=== PATIENT | male | born 1980 | race African-American/Black ===

== ENCOUNTER 2018-06-06 15:42 | Emergency (ER) | payer OTHER ==
--- NOTE | 2018-06-06 16:36 | ER ---
Nurse's Notes [facility] Name: Faustino Tran Age: 37 yrs Sex: Male : 1980 Arrival Date: 06/06/2018 Time: 15:47 Bed 10 Private MD: out of town, doctor Diagnosis: Essential (primary) hypertension;Dental root caries;Cough Presentation: 06/06 15:51 Presenting complaint: Patient states: left upper and lower tooth pain since last week. sv Subjective fever, cough, congestion. Transition of care: patient was not received from another setting of care. Onset of symptoms was May 2018. Care prior to arrival: None. 15:51 Method Of Arrival: Ambulatory sv 15:51 Acuity: VERÓNICA 4 sv 16:14 Risk Assessment: Do you want to hurt yourself or someone else? Patient reports no rv desire to harm self or others. Initial Sepsis Screen: Does the patient meet any 2 criteria? No. Patient's initial sepsis screen is negative. Does the patient have a suspected source of infection? No. Patient's initial sepsis screen is negative. Triage Assessment: 16:18 General: Appears in no apparent distress. uncomfortable, Behavior is calm, cooperative. rv EENT: Reports pain in lower left first molar (#19) and upper left first molar (#14). Historical: - Allergies: 15:52 NSAIDS; sv - PMHx: 15:52 Hypertension; sv - PSHx: 15:52 None; sv - Immunization history:: Flu vaccine is not up to date. - Social history:: Smoking status: Patient uses tobacco products, denies chronic smoking, but will smoke occasionally. - Ebola Screening: : No symptoms or risks identified at this time. Screenin:14 Abuse screen: Denies threats or abuse. Denies injuries from another. Nutritional rv screening: No deficits noted. Tuberculosis screening: No symptoms or risk factors identified. Fall Risk None identified. Assessment: 16:13 General: Appears in no apparent distress. uncomfortable, Behavior is calm, cooperative. rv Pain: Complains of pain in tooth. Neuro: Level of Consciousness is awake, alert, obeys commands, Oriented to person, place, time, situation. Cardiovascular: Capillary refill < 3 seconds. Respiratory: Airway is patent. GI: No signs and/or symptoms were reported involving the gastrointestinal system. : No signs and/or symptoms were reported regarding the genitourinary system. Derm: Skin is intact. Musculoskeletal: No signs and/or symptoms reported regarding the musculoskeletal system. 16:17 EENT: Dental caries noted in upper left first molar (#14) and lower left first molar rv (#19). Vital Signs: 15:52 BP 150 / 106; Pulse 69; Resp 18; Temp 97.2; Pulse Ox 99% ; Weight 113.4 kg; Height 6 sv ft. 4 in. (193.04 cm); Pain 10/10; 16:30 BP 145 / 96; Pulse 71; Resp 16; Pulse Ox 100% on R/A; rv 17:02 BP 158 / 103; Pulse 66; Resp 17 S; Pulse Ox 100% on R/A; rv 15:52 Body Mass Index 30.43 (113.40 kg, 193.04 cm) sv ED Course: 15:47 Patient arrived in ED. mr 15:47 out of town, doctor is Private Physician. mr 15:52 Triage completed. sv 15:53 Arm band placed on. sv 16:01 Patsy Murrell FNP-C [facility]. snw 16:01 Navi Martinez MD is Attending Physician. snw 16:14 Patient has correct armband on for positive identification. Call light in reach. NIBP rv on. 17:02 No provider procedures requiring assistance completed. Patient did not have IV access rv during this emergency room visit. Administered Medications: 16:40 Drug: morphine 4 mg Route: IM; Site: right deltoid; rv 17:01 Follow up: Response: Pain is decreased rv 16:40 Drug: Zofran 4 mg Route: PO; rv 17:01 Follow up: Response: No adverse reaction rv 16:40 Drug: Clindamycin 300 mg Route: PO; rv 17:01 Follow up: Response: No adverse reaction rv Outcome: 16:35 Discharge ordered by . snw 17:03 Discharged to home ambulatory. rv 17:03 Condition: good 17:03 Discharge instructions given to patient, family, Instructed on discharge instructions, follow up and referral plans. medication usage, Demonstrated understanding of instructions, follow-up care, medications, Prescriptions given X 3. 17:03 Patient left the ED. rv Signatures: Kait Reynolds RN RN Patsy Murrell FNP-C FNP-Csnw Huffman Yulia mr Gokul, Eliu, RN RN rv
--- NOTE | 2018-06-06 16:36 | EDPHYS ---
Physician Documentation [facility] Name: Faustino Tran Age: 37 yrs Sex: Male : 1980 Arrival Date: 06/06/2018 Time: 15:47 Bed 10 Private MD: out of town, doctor ED Physician Navi Martinez HPI: 06/06 17:01 This 37 yrs old Black Male presents to ER via Ambulatory with complaints of Toothache. snw 17:01 The patient presents with broken tooth/teeth, pain. The problem is located in the upper snw left first molar (#14) and lower left first molar (#19). Onset: The symptoms/episode began/occurred suddenly, 4 day(s) ago, and became worse last night, and became persistent. Duration: The symptoms are continuous, and are steadily getting worse. Associated signs and symptoms: The patient has no apparent associated signs or symptoms. Severity of symptoms: At their worst the symptoms were moderate, severe. It is unknown whether or not the patient has had similar symptoms in the past. It is unknown whether or not the patient has recently seen a physician. Historical: - Allergies: 15:52 NSAIDS; sv - PMHx: 15:52 Hypertension; sv - PSHx: 15:52 None; sv - Immunization history:: Flu vaccine is not up to date. - Social history:: Smoking status: Patient uses tobacco products, denies chronic smoking, but will smoke occasionally. - Ebola Screening: : No symptoms or risks identified at this time. ROS: 16:59 Constitutional: Negative for fever, chills, and weight loss, Eyes: Negative for injury, snw pain, redness, and discharge, Neck: Negative for injury, pain, and swelling, Cardiovascular: Negative for chest pain, palpitations, and edema, Respiratory: Negative for shortness of breath, wheezing, and pleuritic chest pain, cough Abdomen/GI: Negative for abdominal pain, nausea, vomiting, diarrhea, and constipation, Back: Negative for injury and pain, : Negative for injury, bleeding, discharge, and swelling, MS/Extremity: Negative for injury and deformity, Skin: Negative for injury, rash, and discoloration, Neuro: Negative for headache, weakness, numbness, tingling, and seizure. 16:59 ENT: Positive for dental pain, ear pain, sore throat. Exam: 16:56 Constitutional: This is a well developed, well nourished patient who is awake, alert, snw and in no acute distress. Head/Face: Normocephalic, atraumatic. Eyes: Pupils equal round and reactive to light, extra-ocular motions intact. Lids and lashes normal. Conjunctiva and sclera are non-icteric and not injected. Cornea within normal limits. Periorbital areas with no swelling, redness, or edema. Neck: Trachea midline, no thyromegaly or masses palpated, and no cervical lymphadenopathy. Supple, full range of motion without nuchal rigidity, or vertebral point tenderness. No Meningismus. Chest/axilla: Normal chest wall appearance and motion. Nontender with no deformity. No lesions are appreciated. Cardiovascular: Regular rate and rhythm with a normal S1 and S2. No gallops, murmurs, or rubs. Normal PMI, no JVD. No pulse deficits. Respiratory: Lungs have equal breath sounds bilaterally, clear to auscultation and percussion. No rales, rhonchi or wheezes noted. No increased work of breathing, no retractions or nasal flaring. + dry cough Abdomen/GI: Soft, non-tender, with normal bowel sounds. No distension or tympany. No guarding or rebound. No evidence of tenderness throughout. 16:56 Skin: Warm, dry with normal turgor. Normal color with no rashes, no lesions, and no evidence of cellulitis. MS/ Extremity: Pulses equal, no cyanosis. Neurovascular intact. Full, normal range of motion. Neuro: Awake and alert, GCS 15, oriented to person, place, time, and situation. Cranial nerves II-XII grossly intact. Motor strength 5/5 in all extremities. Sensory grossly intact. Cerebellar exam normal. Normal gait. 16:56 ENT: External ear(s): are unremarkable, Ear canal(s): are normal, TM's: are normal, Nose: is normal, Mouth: is normal, Posterior pharynx: is normal, Dental exam: fractured teeth are noted, specifically the upper left first molar (#14) and lower left first molar (#19), Voice: is normal. Vital Signs: 15:52 BP 150 / 106; Pulse 69; Resp 18; Temp 97.2; Pulse Ox 99% ; Weight 113.4 kg; Height 6 sv ft. 4 in. (193.04 cm); Pain 10/10; 16:30 BP 145 / 96; Pulse 71; Resp 16; Pulse Ox 100% on R/A; rv 17:02 BP 158 / 103; Pulse 66; Resp 17 S; Pulse Ox 100% on R/A; rv 15:52 Body Mass Index 30.43 (113.40 kg, 193.04 cm) sv MDM: 16:24 Patient medically screened. snw 16:32 Data reviewed: vital signs, nurses notes. Data interpreted: Pulse oximetry: on room air snw is 99 %. Interpretation: normal. Counseling: I had a detailed discussion with the patient and/or guardian regarding: the historical points, exam findings, and any diagnostic results supporting the discharge/admit diagnosis, the presence of at least one elevated blood pressure reading (>120/80) during this emergency department visit, the need for outpatient follow up, for definitive care, to return to the emergency department if symptoms worsen or persist or if there are any questions or concerns that arise at home. Special discussion: I have referred the patient to see his PCP for further evaluation of high blood pressure. Based on the history and exam findings, there is no indication for further emergent testing or inpatient evaluation. I discussed with the patient/guardian the need to see a dentist for further evaluation of the symptoms. I discussed with the patient/guardian the need to see the primary care provider for further evaluation of the symptoms. Administered Medications: 16:40 Drug: morphine 4 mg Route: IM; Site: right deltoid; rv 17:01 Follow up: Response: Pain is decreased rv 16:40 Drug: Zofran 4 mg Route: PO; rv 17:01 Follow up: Response: No adverse reaction rv 16:40 Drug: Clindamycin 300 mg Route: PO; rv 17:01 Follow up: Response: No adverse reaction rv Disposition: 06/06/18 16:35 Discharged to Home. Impression: Essential (primary) hypertension, Dental root caries, Cough. - Condition is Stable. - Discharge Instructions: Dental Caries, Adult, Dental Pain, Hypertension, Cough, Adult, [id number], Managing Your Hypertension. - Prescriptions for chlorhexidine gluconate 0.12 % Mucous Membrane mouthwash - place 15 milliliter by MUCOUS MEMBRANE route 2 times per day after brushing teeth, swish in mouth for 30 seconds then spit out; 480 milliliter. Clindamycin HCl 300 mg Oral Capsule - take 1 capsule by ORAL route every 6 hours for 10 days; 40 capsule. Ultram 50 mg Oral Tablet - take 1 tablet by ORAL route every 6 hours As needed; 16 tablet. - Medication Reconciliation Form, Thank You Letter, Antibiotic Education, Prescription Opioid Use form. - Follow up: Private Physician; When: 2 - 3 days; Reason: Recheck today's complaints, Continuance of care, Re-evaluation by your physician. Follow up: Emergency Department; When: As needed; Reason: Worsening of condition. - Notes: dental wax to broken tooth after chlorhexadine mouthwash two to three times daily Addendum: 06/08/2018 19:08 Co-signature as Attending Physician, Navi Martinez MD. g s Signatures: Kait Reynolds RN RN sv Patsy Murrell, PRIMARY COUNSELOR-C PRIMARY COUNSELOR-Csnw Navi Martinez MD MD gs Vicente, Ronaldo RN RN rv Corrections: (The following items were deleted from the chart) 06/06 17:03 16:35 06/06/2018 16:35 Discharged to Home. Impression: Essential (primary) rv hypertension; Dental root caries; Cough. Condition is Stable. Forms are Medication Reconciliation Form, Thank You Letter, Antibiotic Education, Prescription Opioid Use. Follow up: Private Physician; When: 2 - 3 days; Reason: Recheck today's complaints, Continuance of care, Re-evaluation by your physician. Follow up: Emergency Department; When: As needed; Reason: Worsening of condition. snw
[2018-06-06] MEDS ORDERED: CLINDAMYCIN HCL 150 MG CAP ONE (16:46)
[2018-06-06] MEDS ORDERED: ONDANSETRON 4 MG (ODT) TAB ONE (16:46)
[2018-06-06] MEDS ORDERED: MORPHINE 4 MG/ML SYR ONE (16:46)
== END 2018-06-06 17:03 | disposition home or self-care (01) ==
LOC: ER 15:42
DX: K02.7 Dental root caries (principal); I10 Essential (primary) hypertension; R05 Cough; S02.5XXA Fracture of tooth (traumatic), initial encounter for closed fracture; X58.XXXA Exposure to other specified factors, initial encounter; Z72.0 Tobacco use
CPT/HCPCS: 96372; 99283

== ENCOUNTER 2018-06-28 11:14 | Emergency (ER) | payer OTHER ==
--- OUTSIDE RECORDS SUMMARY | 2018-06-28 11:16 | XMS REPORT ---
:1980 [facility] Address [address] [place] [address] [address] [place] [address] Care Team Providers Name Role Phone Unavailable Unavailable Unavailable Payers Payer Name Policy Type Policy Number Effective Date Expiration Date Problems This patient has no known problems. Allergies, Adverse Reactions, Alerts Allergy Allergy Status Severity Reaction(s) Onset Inactive Treating Comments Name Type Date Date Clinician NSAIDS DA Active [place] 2018-01 (Non-Stero -27 idal 00:00:0 Anti-Infla 0 mma Medications This patient has no known medications.
--- NOTE | 2018-06-28 12:53 | EDPHYS ---
Physician Documentation [facility] Name: Faustino Tran Age: 38 yrs Sex: Male : 1980 Arrival Date: 06/28/2018 Time: 11:17 Bed 12 Private MD: ED Physician Laci Pagan HPI: 06/28 12:51 This 38 yrs old Black Male presents to ER via Ambulatory with complaints of Cough. kb 12:51 The patient or guardian reports cough, that is intermittent, described as mild, with no kb sputum. Onset: The symptoms/episode began/occurred 3 day(s) ago. Severity of symptoms: At their worst the symptoms were mild, moderate, in the emergency department the symptoms are unchanged. Modifying factors: The symptoms are alleviated by nothing, the symptoms are aggravated by nothing. Associated signs and symptoms: Pertinent positives: rhinorrhea, Pertinent negatives: chest pain, diarrhea, ear ache, fever, nausea, sore throat, vomiting. The patient has not experienced similar symptoms in the past. The patient has not recently seen a physician. Historical: - Allergies: 11:31 NSAIDS; aj1 - PMHx: 11:31 Hypertension; aj1 - Immunization history:: Adult Immunizations not immunized. - Social history:: Smoking status: Patient uses tobacco products, Patient/guardian denies using alcohol. - Ebola Screening: : Patient negative for fever greater than or equal to 101.5 degrees Fahrenheit, and additional compatible Ebola Virus Disease symptoms Patient denies exposure to infectious person Patient denies travel to an Ebola-affected area in the 21 days before illness onset. ROS: 12:50 Constitutional: Negative for fever, chills, and weight loss, Neck: Negative for injury, kb pain, and swelling, Cardiovascular: Negative for chest pain, palpitations, and edema, Abdomen/GI: Negative for abdominal pain, nausea, vomiting, diarrhea, and constipation, Back: Negative for injury and pain, : Negative for injury, bleeding, discharge, and swelling, MS/Extremity: Negative for injury and deformity, Skin: Negative for injury, rash, and discoloration, Neuro: Negative for headache, weakness, numbness, tingling, and seizure. 12:50 ENT: Positive for rhinorrhea, sinus congestion. 12:50 Respiratory: Positive for cough, Negative for dyspnea on exertion, hemoptysis, orthopnea, pleurisy, shortness of breath, sputum production, wheezing. Exam: 12:50 Constitutional: This is a well developed, well nourished patient who is awake, alert, kb and in no acute distress. Head/Face: Normocephalic, atraumatic. ENT: Nares patent. No nasal discharge, no septal abnormalities noted. Tympanic membranes are normal and external auditory canals are clear. Oropharynx with no redness, swelling, or masses, exudates, or evidence of obstruction, uvula midline. Mucous membranes moist. Neck: Trachea midline, no thyromegaly or masses palpated, and no cervical lymphadenopathy. Supple, full range of motion without nuchal rigidity, or vertebral point tenderness. No Meningismus. Chest/axilla: Normal chest wall appearance and motion. Nontender with no deformity. No lesions are appreciated. Cardiovascular: Regular rate and rhythm with a normal S1 and S2. No gallops, murmurs, or rubs. Normal PMI, no JVD. No pulse deficits. Respiratory: Lungs have equal breath sounds bilaterally, clear to auscultation and percussion. No rales, rhonchi or wheezes noted. No increased work of breathing, no retractions or nasal flaring. Abdomen/GI: Soft, non-tender, with normal bowel sounds. No distension or tympany. No guarding or rebound. No evidence of tenderness throughout. Skin: Warm, dry with normal turgor. Normal color with no rashes, no lesions, and no evidence of cellulitis. MS/ Extremity: Pulses equal, no cyanosis. Neurovascular intact. Full, normal range of motion. Neuro: Awake and alert, GCS 15, oriented to person, place, time, and situation. Cranial nerves II-XII grossly intact. Motor strength 5/5 in all extremities. Sensory grossly intact. Cerebellar exam normal. Normal gait. 12:51 Head/face: Sinus tenderness, that is moderate, is located over the right ethmoid sinus kb and left ethmoid sinus. Vital Signs: 11:31 BP 130 / 81; Pulse 58; Resp 20; Temp 100.2(O); Pulse Ox 99% ; Weight 113.4 kg (R); aj1 Height 6 ft. 4 in. (193.04 cm) (R); 12:56 BP 128 / 80; Pulse 65; Resp 18; Temp 99.8(TE); Pulse Ox 100% on R/A; hj 11:31 Body Mass Index 30.43 (113.40 kg, 193.04 cm) aj1 MDM: 12:21 Patient medically screened. kb 12:51 Data reviewed: vital signs, nurses notes. Data interpreted: Pulse oximetry: on room air kb is 99 %. Interpretation: normal. Counseling: I had a detailed discussion with the patient and/or guardian regarding: the historical points, exam findings, and any diagnostic results supporting the discharge/admit diagnosis, lab results, the need for outpatient follow up, a family practitioner, to return to the emergency department if symptoms worsen or persist or if there are any questions or concerns that arise at home. 06/28 11:48 Order name: Flu; Complete Time: 12:28 kb Administered Medications: No medications were administered Disposition: 16:16 Co-signature as Attending Physician, Laci Pagan MD I agree with the assessment and kdr plan of care. Disposition: 06/28/18 12:52 Discharged to Home. Impression: Acute sinusitis. - Condition is Stable. - Discharge Instructions: Sinusitis, Adult, [id number]. - Prescriptions for Prednisone 20 mg Oral Tablet - take 1 tablet by ORAL route once daily for 5 days; 5 tablet. - Medication Reconciliation Form, Thank You Letter, Antibiotic Education, Prescription Opioid Use form. - Follow up: Emergency Department; When: As needed; Reason: Worsening of condition. Follow up: Private Physician; When: 2 - 3 days; Reason: Recheck today's complaints, Continuance of care, Re-evaluation by your physician. Signatures: Dispatcher [employer] EDIN Cheli Ward, GEOVANNY-[place] SMALL-Nini Duarte RN RN aj1 Laci Pagan MD MD [facility] Aristides Peterson RN RN hj Corrections: (The following items were deleted from the chart) 12:57 12:52 06/28/2018 12:52 Discharged to Home. Impression: Acute sinusitis. Condition is hj Stable. Forms are Medication Reconciliation Form, Thank You Letter, Antibiotic Education, Prescription Opioid Use. Follow up: Emergency Department; When: As needed; Reason: Worsening of condition. Follow up: Private Physician; When: 2 - 3 days; Reason: Recheck today's complaints, Continuance of care, Re-evaluation by your physician. kb
--- NOTE | 2018-06-28 12:53 | ER ---
Nurse's Notes [facility] Emergency Department Name: Faustino Tran Age: 38 yrs Sex: Male : 1980 Arrival Date: 06/28/2018 Time: 11:17 Bed 12 Private MD: Diagnosis: Acute sinusitis Presentation: 06/28 11:29 Presenting complaint: Patient states: Cough, fever, and congestion for the past 3 days. aj1 Reports he tried taking OTC cold medicine, but it didn't help. Transition of care: patient was not received from another setting of care. Onset of symptoms was June 25, 2018. Risk Assessment: Do you want to hurt yourself or someone else? Patient reports no desire to harm self or others. Initial Sepsis Screen: Does the patient meet any 2 criteria? No. Patient's initial sepsis screen is negative. Does the patient have a suspected source of infection? Yes: Productive cough/pneumonia. Care prior to arrival: None. 11:29 Method Of Arrival: Ambulatory [facility] 11:29 Acuity: VERÓNICA 4 aj1 Triage Assessment: 12:35 General: Appears in no apparent distress. uncomfortable, Behavior is calm, cooperative, hj appropriate for age. 12:36 Pain: Denies pain. hj Historical: - Allergies: 11:31 NSAIDS; aj1 - PMHx: 11:31 Hypertension; aj1 - Immunization history:: Adult Immunizations not immunized. - Social history:: Smoking status: Patient uses tobacco products, Patient/guardian denies using alcohol. - Ebola Screening: : Patient negative for fever greater than or equal to 101.5 degrees Fahrenheit, and additional compatible Ebola Virus Disease symptoms Patient denies exposure to infectious person Patient denies travel to an Ebola-affected area in the 21 days before illness onset. Screenin:35 Abuse screen: Denies threats or abuse. Denies injuries from another. Nutritional hj screening: No deficits noted. Tuberculosis screening: No symptoms or risk factors identified. Fall Risk None identified. Assessment: 12:36 General: Appears in no apparent distress. uncomfortable, Behavior is calm, cooperative, hj appropriate for age. Pain: Denies pain. Neuro: Level of Consciousness is awake, alert, obeys commands, Oriented to person, place, time, situation, Appropriate for age. Cardiovascular: Capillary refill < 3 seconds Patient's skin is warm and dry. Respiratory: Airway is patent Respiratory effort is even, unlabored, Respiratory pattern is regular, symmetrical. GI: No signs and/or symptoms were reported involving the gastrointestinal system. : No signs and/or symptoms were reported regarding the genitourinary system. EENT: No signs and/or symptoms were reported regarding the EENT system. Derm: No signs and/or symptoms reported regarding the dermatologic system. Musculoskeletal: No signs and/or symptoms reported regarding the musculoskeletal system. Vital Signs: 11:31 BP 130 / 81; Pulse 58; Resp 20; Temp 100.2(O); Pulse Ox 99% ; Weight 113.4 kg (R); aj1 Height 6 ft. 4 in. (193.04 cm) (R); 12:56 BP 128 / 80; Pulse 65; Resp 18; Temp 99.8(TE); Pulse Ox 100% on R/A; hj 11:31 Body Mass Index 30.43 (113.40 kg, 193.04 cm) aj1 ED Course: 11:17 Patient arrived in ED. rg4 11:31 Triage completed. aj1 11:31 Arm band placed on Patient placed in waiting room, Patient notified of wait time. aj1 11:56 Flu Sent. aj1 12:06 [facility]-C [facility]. kb 12:06 Laci Pagan MD is Attending Physician. kb 12:19 Flu Sent. hj 12:23 Aristides Peterson RN is Primary Nurse. hj 12:36 Patient has correct armband on for positive identification. Bed in low position. Call hj light in reach. Side rails up X 1. 12:56 No provider procedures requiring assistance completed. Patient did not have IV access hj during this emergency room visit. Administered Medications: No medications were administered Outcome: 12:52 Discharge ordered by . kb 12:57 Discharged to home ambulatory. hj 12:57 Condition: stable 12:57 Discharge instructions given to patient, Instructed on discharge instructions, follow up and referral plans. medication usage, Demonstrated understanding of instructions, follow-up care, medications, Prescriptions given X 1. 12:57 Patient left the ED. hj Signatures: Cheli Ward FNP-C FNP-Ckb Johnson, Angela, RN RN aj Aristides Peterson RN RN hj Garcia, Rubi rg4
== END 2018-06-28 12:57 | disposition home or self-care (01) ==
LOC: ER 11:14
DX: J01.90 Acute sinusitis, unspecified (principal); Z72.0 Tobacco use
CPT/HCPCS: 87804; 99283

== ENCOUNTER 2018-07-18 16:54 | Emergency (ER) | payer OTHER ==
--- OUTSIDE RECORDS SUMMARY | 2018-07-18 16:56 | XMS REPORT ---
:1980 [facility] Address [address] [place] [address] [address] [place] [address] Care Team Providers Name Role Phone Unavailable Unavailable Unavailable Payers Payer Name Policy Type Policy Number Effective Date Expiration Date Problems This patient has no known problems. Allergies, Adverse Reactions, Alerts Allergy Allergy Status Severity Reaction(s) Onset Inactive Treating Comments Name Type Date Date Clinician NSAIDS DA Active [place] 2018-01 (Non-Stero -27 idal 00:00:0 Anti-Infla 0 mma Medications This patient has no known medications.
--- NOTE | 2018-07-18 17:39 | EDPHYS ---
Physician Documentation [facility] Name: Faustino Tran Age: 38 yrs Sex: Male : 1980 Arrival Date: 07/18/2018 Time: 16:57 Bed 24 Private MD: out of town, doctor ED Physician Feng Friedman HPI: 07/18 17:32 This 38 yrs old Black Male presents to ER via Ambulatory with complaints of Headache, ps1 Painful Cough. 17:32 Onset of flu like symptoms for 3 days. Headache, sore throat, cough, body aches, fever, ps1 chills. States that he is allergic to NSAIDS. No remitting factors. None tried. Otherwise has hx of htn. . Historical: - Allergies: 17:18 NSAIDS; sg - PMHx: 17:18 Hypertension; sg - PSHx: 17:18 None; sg - Immunization history:: Adult Immunizations not up to date. - Social history:: Smoking status: Patient uses tobacco products, denies chronic smoking, but will smoke occasionally. - Ebola Screening: : Patient negative for fever greater than or equal to 101.5 degrees Fahrenheit, and additional compatible Ebola Virus Disease symptoms Patient denies exposure to infectious person Patient denies travel to an Ebola-affected area in the 21 days before illness onset No symptoms or risks identified at this time. ROS: 17:32 Eyes: Negative for injury, pain, redness, and discharge, ENT: Negative for injury, ps1 pain, and discharge, Cardiovascular: Negative for chest pain, palpitations, and edema, Abdomen/GI: Negative for abdominal pain, nausea, vomiting, diarrhea, and constipation, Back: Negative for injury and pain, MS/Extremity: Negative for injury and deformity, Skin: Negative for injury, rash, and discoloration, Neuro: Negative for headache, weakness, numbness, tingling, and seizure. 17:32 Constitutional: Positive for body aches, chills, fatigue, fever, malaise. 17:32 Respiratory: Positive for cough. Exam: 17:37 Constitutional: This is a well developed, well nourished patient who is awake, alert, ps1 and in no acute distress. Head/Face: Normocephalic, atraumatic. Eyes: Pupils equal round and reactive to light, extra-ocular motions intact. Lids and lashes normal. Conjunctiva and sclera are non-icteric and not injected. Chest/axilla: Normal chest wall appearance and motion. Nontender with no deformity. No lesions are appreciated. Cardiovascular: Regular rate and rhythm. No gallops, murmurs, or rubs. Normal PMI, no JVD. No pulse deficits. Respiratory: Lungs have equal breath sounds bilaterally, clear to auscultation and percussion. No rales, rhonchi or wheezes noted. No increased work of breathing, no retractions or nasal flaring. Abdomen/GI: Soft, non-tender, with normal bowel sounds. No distension or tympany. No guarding or rebound. No evidence of tenderness throughout. MS/ Extremity: Pulses equal, no cyanosis. Neurovascular intact. Full, normal range of motion. Neuro: Awake and alert, GCS 15, oriented to person, place, time, and situation. Cranial nerves II-XII grossly intact. Sensory grossly intact. Vital Signs: 17:16 BP 150 / 90; Pulse 85; Resp 18; Temp 98.0; Pulse Ox 100% ; Weight 113.4 kg; Height 6 sg ft. 4 in. (193.04 cm); 17:16 Body Mass Index 30.43 (113.40 kg, 193.04 cm) sg MDM: 17:38 Patient medically screened. ps1 17:40 Data reviewed: vital signs, nurses notes, and as a result, I will discharge patient. ps1 Administered Medications: No medications were administered Disposition: 07/18/18 17:38 Discharged to Home. Impression: Influenza. - Condition is Stable. - Discharge Instructions: Influenza, Adult. - Prescriptions for Tylenol- Codeine #3 300-30 mg Oral Tablet - take 2 tablet by ORAL route every 6 hours As needed; 30 tablet. Zofran 4 mg Oral Tablet - take 1 tablet by ORAL route every 12 hours As needed; 20 tablet. - Medication Reconciliation Form, Thank You Letter, Antibiotic Education, Prescription Opioid Use form. - Follow up: Emergency Department; When: As needed; Reason: Recheck today's complaints, Continuance of care, Re-evaluation by your physician. Follow up: Private Physician; When: As needed; Reason: Wound Recheck, If symptoms return, Further diagnostic work-up, Continuance of care. - Problem is new. - Symptoms are unchanged. Signatures: Jeb Kuhn, RN RN Justyna Johnson RN RN Feng Nagel MD MD ps1 Corrections: (The following items were deleted from the chart) 17:51 17:38 07/18/2018 17:38 Discharged to Home. Impression: Influenza. Condition is Stable. aj Forms are Medication Reconciliation Form, Thank You Letter, Antibiotic Education, Prescription Opioid Use. Follow up: Emergency Department; When: As needed; Reason: Recheck today's complaints, Continuance of care, Re-evaluation by your physician. Follow up: Private Physician; When: As needed; Reason: Wound Recheck, If symptoms return, Further diagnostic work-up, Continuance of care. Problem is new. Symptoms are unchanged. ps1
--- NOTE | 2018-07-18 17:39 | ER ---
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 Transition of care: patient was not received from another setting of care. Onset of symptoms was July 18, 2018. Risk Assessment: Do you want to hurt yourself or someone else? Patient reports no desire to harm self or others. Initial Sepsis Screen: Does the patient meet any 2 criteria? No. Patient's initial sepsis screen is negative. Does the patient have a suspected source of infection? No. Patient's initial sepsis screen is negative. Care prior to arrival: None. 17:17 Method Of Arrival: Ambulatory sg 17:17 Acuity: VERÓNICA 4 sg Triage Assessment: 17:51 Pain: Also complains of. aj Historical: - Allergies: 17:18 NSAIDS; sg - PMHx: 17:18 Hypertension; sg - PSHx: 17:18 None; sg - Immunization history:: Adult Immunizations not up to date. - Social history:: Smoking status: Patient uses tobacco products, denies chronic smoking, but will smoke occasionally. - Ebola Screening: : Patient negative for fever greater than or equal to 101.5 degrees Fahrenheit, and additional compatible Ebola Virus Disease symptoms Patient denies exposure to infectious person Patient denies travel to an Ebola-affected area in the 21 days before illness onset No symptoms or risks identified at this time. Screenin:45 Abuse screen: Denies threats or abuse. Denies injuries from another. Nutritional aj screening: No deficits noted. Tuberculosis screening: No symptoms or risk factors identified. Fall Risk None identified. Assessment: 17:45 General: Appears in no apparent distress. comfortable, Behavior is calm, cooperative, aj appropriate for age. Pain: Denies pain. Neuro: Level of Consciousness is awake, alert, obeys commands, Oriented to person, place, time, situation, Appropriate for age. Respiratory: Airway Respiratory effort is even, unlabored, Respiratory pattern is regular, symmetrical. Respiratory: Reports cough that is pain with cough. Derm: Skin is intact, is healthy with good turgor, Skin is pink, warm \T\ dry. normal. Vital Signs: 17:16 BP 150 / 90; Pulse 85; Resp 18; Temp 98.0; Pulse Ox 100% ; Weight 113.4 kg; Height 6 sg ft. 4 in. (193.04 cm); 17:16 Body Mass Index 30.43 (113.40 kg, 193.04 cm) ED Course: 16:57 Patient arrived in ED. sb2 16:57 out of town, doctor is Private Physician. sb2 17:16 Arm band placed on. sg 17:18 Triage completed. sg 17:23 Feng Friedman MD is Attending Physician. ps1 17:31 Justyna Ramirez RN is Primary Nurse. aj 17:45 Patient has correct armband on for positive identification. aj 17:45 No provider procedures requiring assistance completed. Patient did not have IV access aj during this emergency room visit. Administered Medications: No medications were administered Outcome: 17:38 Discharge ordered by . ps1 17:45 Discharged to home ambulatory. aj 17:45 Condition: good 17:45 Discharge instructions given to patient, Instructed on discharge instructions, follow up and referral plans. medication usage, Demonstrated understanding of instructions, follow-up care, medications, Prescriptions given X 2. 17:51 Patient left the ED. aj Signatures: Jeb Kuhn RN RN Justyna Ramirez RN RN Feng Friedman MD MD ps1 Hilary Shah sb2 Corrections: (The following items were deleted from the chart) 17:51 17:45 Discharge instructions given to patient, Instructed on discharge instructions, aj follow up and referral plans. medication usage, Demonstrated understanding of instructions, follow-up care, medications, Prescriptions given X 1, aj
== END 2018-07-18 17:51 | disposition home or self-care (01) ==
LOC: ER 16:54
DX: J11.1 Influenza due to unidentified influenza virus with other respiratory manifestations (principal); Z72.0 Tobacco use
CPT/HCPCS: 99282

== ENCOUNTER 2018-07-21 09:43 | Emergency (ER) | payer OTHER ==
--- OUTSIDE RECORDS SUMMARY | 2018-07-21 09:45 | XMS REPORT ---
:1980 [facility] Address [address] [place] [address] [address] [place] [address] Care Team Providers Name Role Phone Unavailable Unavailable Unavailable Payers Payer Name Policy Type Policy Number Effective Date Expiration Date Problems This patient has no known problems. Allergies, Adverse Reactions, Alerts Allergy Allergy Status Severity Reaction(s) Onset Inactive Treating Comments Name Type Date Date Clinician NSAIDS DA Active DC 2018-01 (Non-Stero -27 idal 00:00:0 Anti-Infla 0 mma Medications This patient has no known medications.
--- NOTE | 2018-07-21 11:28 | ER ---
Nurse's Notes [facility] Name: Faustino Tran Age: 38 yrs Sex: Male : 1980 Arrival Date: 07/21/2018 Time: 09:45 Bed 9 Private MD: out of town, doctor Diagnosis: Acute bronchitis Presentation: 07/21 10:06 Presenting complaint: Patient states: cough and congestion since Tuesday and was seen sv here and prescribed meds but they are not helping. Transition of care: patient was not received from another setting of care. Onset of symptoms was July 17, 2018. Risk Assessment: Do you want to hurt yourself or someone else? Patient reports no desire to harm self or others. Care prior to arrival: None. 10:06 Method Of Arrival: Ambulatory sv 10:06 Acuity: VERÓNICA 4 sv 11:30 Initial Sepsis Screen: Does the patient meet any 2 criteria? No. Patient's initial iw sepsis screen is negative. Does the patient have a suspected source of infection? No. Patient's initial sepsis screen is negative. Triage Assessment: 11:20 General: Appears in no apparent distress. Behavior is calm, cooperative. iw Historical: - Allergies: 10:07 NSAIDS; sv - PMHx: 10:07 Hypertension; sv - PSHx: 10:07 None; sv - Immunization history:: Adult Immunizations up to date. - Social history:: Smoking status: unknown. - Ebola Screening: : Patient negative for fever greater than or equal to 101.5 degrees Fahrenheit, and additional compatible Ebola Virus Disease symptoms Patient denies exposure to infectious person Patient denies travel to an Ebola-affected area in the 21 days before illness onset No symptoms or risks identified at this time. Screenin:32 Abuse screen: Denies threats or abuse. Denies injuries from another. Nutritional iw screening: No deficits noted. Tuberculosis screening: No symptoms or risk factors identified. Fall Risk None identified. Assessment: 10:50 General: Appears in no apparent distress. Behavior is calm, cooperative. Pain: Denies iw pain. Neuro: Level of Consciousness is awake, alert, obeys commands, Oriented to person, place, time, situation, Moves all extremities. Full function. Cardiovascular: Patient's skin is warm and dry. Respiratory: Respiratory effort is even, unlabored, Respiratory pattern is regular, symmetrical. Respiratory: Reports cough that is. Derm: Skin is intact, is healthy with good turgor. Musculoskeletal: Range of motion: intact in all extremities. Vital Signs: 10:07 BP 138 / 78; Pulse 84; Resp 20; Temp 99.4; Pulse Ox 98% ; Weight 113.4 kg; Height 6 ft. sv 4 in. (193.04 cm); Pain 10/10; 10:07 Body Mass Index 30.43 (113.40 kg, 193.04 cm) sv ED Course: 09:45 Patient arrived in ED. mr 09:46 out of town, doctor is Private Physician. mr 10:07 Triage completed. sv 10:07 Arm band placed on Patient placed in waiting room, Patient notified of wait time. sv 11:00 Valencia Lopez, RN is Primary Nurse. iw 11:12 Sandip Hamilton PA is PHCP. [facility] 11:12 Jamal Veras MD is Attending Physician. [facility] 11:30 Patient has correct armband on for positive identification. iw 11:32 No provider procedures requiring assistance completed. Patient did not have IV access iw during this emergency room visit. Administered Medications: No medications were administered Outcome: 11:26 Discharge ordered by . jmm 11:32 Discharged to home ambulatory. iw 11:32 Condition: good 11:32 Discharge instructions given to patient, Instructed on discharge instructions, follow up and referral plans. Demonstrated understanding of instructions, follow-up care, Prescriptions given X 3. 11:34 Patient left the ED. iw Signatures: Kait Reynolds RN RN Sandip Hamilton PA PA [facility] Yulia Huffman mr Valencia Lopez, RN RN iw Corrections: (The following items were deleted from the chart) 13:36 11:32 Discharge instructions given to patient, Instructed on discharge instructions, iw follow up and referral plans. Demonstrated understanding of instructions, follow-up care, iw
--- NOTE | 2018-07-21 11:28 | EDPHYS ---
Physician Documentation [facility] Name: Faustino Tran Age: 38 yrs Sex: Male : 1980 Arrival Date: 07/21/2018 Time: 09:45 Bed 9 Private MD: out of town, doctor ED Physician Jamal Veras HPI: 07/21 11:20 This 38 yrs old Black Male presents to ER via Ambulatory with complaints of Flu jmm Symptoms. 11:20 The patient or guardian reports cough. Onset: The symptoms/episode began/occurred jmm gradually, 5 day(s) ago. Modifying factors: The symptoms are alleviated by nothing, the symptoms are aggravated by nothing. Associated signs and symptoms: Pertinent positives: sore throat, Pertinent negatives:. This is a 38 year old male with a history of htn that presents to the ED with cough since this past Tuesday. Patient was evaluated in the ED and prescribed tylenol with codeine with no relief. Patient denies fever. Patient states he had friends with similar symptoms. . Historical: - Allergies: 10:07 NSAIDS; sv - PMHx: 10:07 Hypertension; sv - PSHx: 10:07 None; sv - Immunization history:: Adult Immunizations up to date. - Social history:: Smoking status: unknown. - Ebola Screening: : Patient negative for fever greater than or equal to 101.5 degrees Fahrenheit, and additional compatible Ebola Virus Disease symptoms Patient denies exposure to infectious person Patient denies travel to an Ebola-affected area in the 21 days before illness onset No symptoms or risks identified at this time. ROS: 11:20 Constitutional: Negative for fever, chills, and weight loss, Cardiovascular: Negative [facility] for chest pain, palpitations, and edema. 11:20 Respiratory: Positive for cough. Vital Signs: 10:07 BP 138 / 78; Pulse 84; Resp 20; Temp 99.4; Pulse Ox 98% ; Weight 113.4 kg; Height 6 ft. sv 4 in. (193.04 cm); Pain 10/10; 10:07 Body Mass Index 30.43 (113.40 kg, 193.04 cm) sv MDM: 11:24 Patient medically screened. [facility] 11:24 Data reviewed: vital signs, nurses notes. Counseling: I had a detailed discussion with jmgerry the patient and/or guardian regarding: the historical points, exam findings, and any diagnostic results supporting the discharge/admit diagnosis, the need for outpatient follow up, to return to the emergency department if symptoms worsen or persist or if there are any questions or concerns that arise at home. Refusal of service: The patient/guardian displays adequate decision making capability and despite a detailed discussion of alternatives, benefits, risks, and consequences refuses: all X-rays. ED course: Patient is alert and non toxic in appearance in the ED. Patient declined chest x ray. Patient was given strict return precautions. . Administered Medications: No medications were administered Disposition: 12:22 Co-signature as Attending Physician, Jamal Veras MD. rn Disposition: 07/21/18 11:27 Discharged to Home. Impression: Acute bronchitis. - Condition is Stable. - Discharge Instructions: Acute Bronchitis, Adult. - Prescriptions for Prednisone 20 mg Oral Tablet - take 3 tablet by ORAL route once daily for 5 days; 15 tablet. Tessalon Perles 100 mg Oral Capsule - take 1 capsule by ORAL route every 8 hours As needed; 15 capsule. Zithromax Z- Iglesia 250 mg Oral Tablet - take 1 tablet by ORAL route as directed for 5 days Day 1 - take two (2) tablets one time. Day 2, 3, 4 , 5 take one (1) tablet once daily.; 6 tablet. - Medication Reconciliation Form, Thank You Letter, Antibiotic Education, Prescription Opioid Use form. - Follow up: Private Physician; When: 2 - 3 days; Reason: Recheck today's complaints, Continuance of care, Re-evaluation by your physician. Signatures: Kait Reynolds RN RN sv Mickail, Joel, PA PA jmm Williams, Irene, RN RN iw Nieto, Roman, MD MD glove turner: (The following items were deleted from the chart) 11:34 11:27 07/21/2018 11:27 Discharged to Home. Impression: Acute bronchitis. Condition is iw Stable. Forms are Medication Reconciliation Form, Thank You Letter, Antibiotic Education, Prescription Opioid Use. Follow up: Private Physician; When: 2 - 3 days; Reason: Recheck today's complaints, Continuance of care, Re-evaluation by your physician. julia
== END 2018-07-21 11:34 | disposition home or self-care (01) ==
LOC: ER 09:43
DX: J20.9 Acute bronchitis, unspecified (principal); I10 Essential (primary) hypertension; Z88.6 Allergy status to analgesic agent

== ENCOUNTER 2018-07-28 19:13 | Emergency (ER) | payer OTHER ==
--- OUTSIDE RECORDS SUMMARY | 2018-07-28 19:15 | XMS REPORT ---
:1980 [facility] Address [address] [place] [address] [address] [place] [address] Care Team Providers Name Role Phone Unavailable Unavailable Unavailable Payers Payer Name Policy Type Policy Number Effective Date Expiration Date Problems This patient has no known problems. Allergies, Adverse Reactions, Alerts Allergy Allergy Status Severity Reaction(s) Onset Inactive Treating Comments Name Type Date Date Clinician NSAIDS DA Active ID 2018-01 (Non-Stero -27 idal 00:00:0 Anti-Infla 0 mma Medications This patient has no known medications.
--- NOTE | 2018-07-28 19:40 | EDPHYS ---
Physician Documentation [facility] Name: Faustino Tran Age: 38 yrs Sex: Male : 1980 Arrival Date: 07/28/2018 Time: 19:16 Bed 19 Private MD: ED Physician Navi Martinez HPI: 07/28 19:38 This 38 yrs old Black Male presents to ER via Ambulatory with complaints of Bilateral pm1 Hand Pain. 19:38 The patient or guardian reports pain, swelling. The complaints affect the left hand and pm1 right hand. Context: The problem was sustained at home, resulted from a repetitive motion, beard. Onset: The symptoms/episode began/occurred 2 day(s) ago. Modifying factors: The symptoms are alleviated by nothing, the symptoms are aggravated by nothing. Associated signs and symptoms: Pertinent negatives: cyanosis distally, decreased sensation distally, numbness distally, tingling distally. Severity of symptoms: in the emergency department the symptoms have improved. The patient has not experienced similar symptoms in the past. The patient has not recently seen a physician. Patient works as a beard. Woke up with pain to both hands on Tuesday morning after working hard with both hands. left hand pain has improved. Historical: - Allergies: 19:28 NSAIDS; aj1 - Home Meds: 19:28 None [Active]; aj1 - PMHx: 19:28 Hypertension; aj1 - Immunization history:: Flu vaccine is not up to date. - Social history:: Smoking status: Patient uses tobacco products, denies chronic smoking, but will smoke occasionally. - Ebola Screening: : Patient denies travel to an Ebola-affected area in the 21 days before illness onset. ROS: 19:38 Constitutional: Negative for fever, chills, and weight loss, Eyes: Negative for injury, pm1 pain, redness, and discharge, ENT: Negative for injury, pain, and discharge, Neck: Negative for injury, pain, and swelling, Cardiovascular: Negative for chest pain, palpitations, and edema, Respiratory: Negative for shortness of breath, cough, wheezing, and pleuritic chest pain, Abdomen/GI: Negative for abdominal pain, nausea, vomiting, diarrhea, and constipation, Back: Negative for injury and pain, : Negative for injury, bleeding, discharge, and swelling. 19:38 Skin: Negative for injury, rash, and discoloration. 19:38 Neuro: Negative for headache, weakness, numbness, tingling, and seizure. 19:38 MS/extremity: Positive for pain, swelling, of the left hand and right hand, Negative for paresthesias, tingling. Exam: 19:38 Constitutional: This is a well developed, well nourished patient who is awake, alert, pm1 and in no acute distress. Head/Face: Normocephalic, atraumatic. Eyes: Pupils equal round and reactive to light, extra-ocular motions intact. Lids and lashes normal. Conjunctiva and sclera are non-icteric and not injected. Cornea within normal limits. Periorbital areas with no swelling, redness, or edema. ENT: Nares patent. No nasal discharge, no septal abnormalities noted. Tympanic membranes are normal and external auditory canals are clear. Oropharynx with no redness, swelling, or masses, exudates, or evidence of obstruction, uvula midline. Mucous membranes moist. Neck: Trachea midline, no thyromegaly or masses palpated, and no cervical lymphadenopathy. Supple, full range of motion without nuchal rigidity, or vertebral point tenderness. No Meningismus. Chest/axilla: Normal chest wall appearance and motion. Nontender with no deformity. No lesions are appreciated. Cardiovascular: Regular rate and rhythm with a normal S1 and S2. No gallops, murmurs, or rubs. Normal PMI, no JVD. No pulse deficits. Respiratory: Lungs have equal breath sounds bilaterally, clear to auscultation and percussion. No rales, rhonchi or wheezes noted. No increased work of breathing, no retractions or nasal flaring. Abdomen/GI: Soft, non-tender, with normal bowel sounds. No distension or tympany. No guarding or rebound. No evidence of tenderness throughout. Back: No spinal tenderness. No costovertebral tenderness. Full range of motion. Skin: Warm, dry with normal turgor. Normal color with no rashes, no lesions, and no evidence of cellulitis. 19:38 Musculoskeletal/extremity: Extremities: grossly normal except: positive tinnel's and phalens bilaterally. 19:38 Neuro: Orientation: is normal, Motor: is normal, moves all fours, Sensation: is normal, no obvious gross deficits. Vital Signs: 19:28 BP 154 / 98; Pulse 56; Resp 18; Temp 97.8; Pulse Ox 99% on R/A; Weight 113.4 kg (R); aj1 Height 6 ft. 4 in. (193.04 cm) (R); Pain 10/10; 19:28 Body Mass Index 30.43 (113.40 kg, 193.04 cm) aj1 MDM: 19:30 Patient medically screened. pm1 19:38 Data reviewed: vital signs. Data interpreted: Pulse oximetry: on room air is 99 %. pm1 Interpretation: normal. Counseling: I had a detailed discussion with the patient and/or guardian regarding: the historical points, exam findings, and any diagnostic results supporting the discharge/admit diagnosis, the need for outpatient follow up, to return to the emergency department if symptoms worsen or persist or if there are any questions or concerns that arise at home. Administered Medications: 19:49 Drug: SOLU-Medrol 125 mg Route: IM; Site: right deltoid; [facility] 19:49 Follow up: Response: No adverse reaction [facility] Disposition: 07/29 03:29 Co-signature as Attending Physician, Navi Martinez MD. Disposition: 07/28/18 19:39 Discharged to Home. Impression: Carpal tunnel syndrome. - Condition is Stable. - Discharge Instructions: Carpal Tunnel Syndrome. - Prescriptions for Tylenol- Codeine #3 300-30 mg Oral Tablet - take 2 tablets by ORAL route every 6 hours As needed; 20 tablet. Medrol (Iglesia) 4 mg Oral Tablets, Dose Pack - take 1 tablet by ORAL route as directed - follow package instructions; 1 packet. - Medication Reconciliation Form, Thank You Letter, Prescription Opioid Use form. - Follow up: Emergency Department; When: As needed; Reason: Worsening of condition. Follow up: Vishnu Lisa MD; When: 2 - 3 days; Reason: Recheck today's complaints, Continuance of care, Re-evaluation by your physician. - Problem is new. - Symptoms have improved. Signatures: Nini Ellis RN RN aj1 Brian Olmstead, ANGEL KNOCKDOWN WORKER pm1 Valerio Portillo RN RN jb4 Navi Martinez MD MD gs Corrections: (The following items were deleted from the chart) 07/28 19:52 19:39 07/28/2018 19:39 Discharged to Home. Impression: Carpal tunnel syndrome. jb4 Condition is Stable. Forms are Medication Reconciliation Form, Thank You Letter, Antibiotic Education, Prescription Opioid Use. Follow up: Emergency Department; When: As needed; Reason: Worsening of condition. Follow up: Vishnu Lisa; When: 2 - 3 days; Reason: Recheck today's complaints, Continuance of care, Re-evaluation by your physician. Problem is new. Symptoms have improved. pm1
--- NOTE | 2018-07-28 19:40 | ER ---
Nurse's Notes [facility] Name: Faustino Tran Age: 38 yrs Sex: Male : 1980 Arrival Date: 07/28/2018 Time: 19:16 Bed 19 Private MD: Diagnosis: Carpal tunnel syndrome Presentation: 07/28 19:26 Presenting complaint: Patient states: "I woke up Tuesday and my hands were hurting. I aj1 haven't been doing much at work with my hands, but my hands were just swollen and hurting bad. I can't even make a fist it hurts so bad" Patient denies injury to either hand. Transition of care: patient was not received from another setting of care. Onset of symptoms was 2018. Risk Assessment: Do you want to hurt yourself or someone else? Patient reports no desire to harm self or others. Initial Sepsis Screen: Does the patient meet any 2 criteria? HR > 90 bpm. No. Patient's initial sepsis screen is negative. Does the patient have a suspected source of infection? Yes: Other: swelling in hands. Care prior to arrival: None. 19:26 Method Of Arrival: Ambulatory aj1 19:26 Acuity: VERÓNICA 4 aj1 Triage Assessment: 19:28 General: Appears in no apparent distress. uncomfortable, Behavior is calm, cooperative, aj1 appropriate for age. Pain: Complains of pain in right hand and left hand Pain currently is 10 out of 10 on a pain scale. Neuro: Level of Consciousness is awake, alert, obeys commands. Cardiovascular: Patient's skin is warm and dry. Respiratory: Airway is patent Respiratory effort is even, unlabored, Respiratory pattern is regular, symmetrical. Historical: - Allergies: 19:28 NSAIDS; aj1 - Home Meds: 19:28 None [Active]; aj1 - PMHx: 19:28 Hypertension; aj1 - Immunization history:: Flu vaccine is not up to date. - Social history:: Smoking status: Patient uses tobacco products, denies chronic smoking, but will smoke occasionally. - Ebola Screening: : Patient denies travel to an Ebola-affected area in the 21 days before illness onset. Screenin:30 Abuse screen: Denies threats or abuse. Nutritional screening: No deficits noted. jb4 Tuberculosis screening: No symptoms or risk factors identified. Fall Risk None identified. Assessment: 19:30 General: Appears in no apparent distress. uncomfortable, Behavior is calm, cooperative, jb4 appropriate for age. Pain: Complains of pain in right hand Pain radiates to dorsal aspect of right forearm Pain currently is 10 out of 10 on a pain scale. Neuro: Level of Consciousness is awake, alert, obeys commands, Oriented to person, place, time, situation, Moves all extremities. Gait is steady, Speech is normal, Facial symmetry appears normal. Cardiovascular: Patient's skin is warm and dry. Respiratory: Airway is patent Respiratory effort is even, unlabored, Respiratory pattern is regular, symmetrical. GI: No signs and/or symptoms were reported involving the gastrointestinal system. : No signs and/or symptoms were reported regarding the genitourinary system. EENT: No signs and/or symptoms were reported regarding the EENT system. Derm: Skin is intact, Skin is dry, Skin is normal, Skin temperature is warm. Musculoskeletal: Circulation, motion, and sensation intact. Swelling present in Right first web space. Vital Signs: 19:28 BP 154 / 98; Pulse 56; Resp 18; Temp 97.8; Pulse Ox 99% on R/A; Weight 113.4 kg (R); aj1 Height 6 ft. 4 in. (193.04 cm) (R); Pain 10/10; 19:28 Body Mass Index 30.43 (113.40 kg, 193.04 cm) aj1 ED Course: 19:16 Patient arrived in ED. as 19:27 Triage completed. aj1 19:28 Arm band placed on Patient placed in an exam room. aj1 19:29 Valerio Portillo RN is Primary Nurse. jb4 19:29 Brian Olmstead NP is PHCP. pm1 19:30 Navi Martinez MD is Attending Physician. pm1 19:30 Patient has correct armband on for positive identification. Bed in low position. Call jb4 light in reach. Side rails up X 1. 19:30 No provider procedures requiring assistance completed. Patient did not have IV access jb4 during this emergency room visit. 19:38 Vishnu Lisa MD is Referral Physician. pm1 Administered Medications: 19:49 Drug: SOLU-Medrol 125 mg Route: IM; Site: right deltoid; jb4 19:49 Follow up: Response: No adverse reaction jb4 Outcome: 19:39 Discharge ordered by . pm1 19:51 Discharged to home ambulatory. jb4 19:51 Condition: stable 19:51 Discharge instructions given to patient, Instructed on discharge instructions, follow up and referral plans. medication usage, Demonstrated understanding of instructions, follow-up care, medications, Prescriptions given X 2. 19:52 Patient left the ED. jb4 Signatures: Nini Ellis RN RN aj1 Nelida Barker Patrick, ANGEL JAVASCRIPT PROGRAMMER pm1 Valerio Portillo RN RN jb4
[2018-07-28] MEDS ORDERED: METHYLPREDNISOLONE 125 MG INJ ONE (19:51)
== END 2018-07-28 19:52 | disposition home or self-care (01) ==
LOC: ER 19:13
DX: M79.641 Pain in right hand (principal); G56.03 Carpal tunnel syndrome, bilateral upper limbs; I10 Essential (primary) hypertension; Z72.0 Tobacco use; Z88.6 Allergy status to analgesic agent
CPT/HCPCS: 96372; 99283; J2930

== ENCOUNTER 2018-11-16 18:38 | Emergency (ER) | payer OTHER ==
--- OUTSIDE RECORDS SUMMARY | 2018-11-16 18:40 | XMS REPORT ---
:1980 Author Organization [facility] Address [address] [place] [address] [address] [place] [address] Care Team Providers Name Role Phone Unavailable Unavailable Unavailable Payers Payer Name Policy Type Policy Number Effective Date Expiration Date Problems This patient has no known problems. Allergies, Adverse Reactions, Alerts Allergy Allergy Status Severity Reaction(s) Onset Inactive Treating Comments Name Type Date Date Clinician NSAIDS DA Active [place] 2018-01 (Non-Stero -27 idal 00:00:0 Anti-Infla 0 mma Medications This patient has no known medications.
--- NOTE | 2018-11-16 19:45 | EDPHYS ---
Physician Documentation [facility] Name: Faustino Tran Age: 38 yrs Sex: Male : 1980 Arrival Date: 11/16/2018 Time: 18:40 Bed 14 Private MD: ED Physician Wan Lanza HPI: 11/16 19:42 This 38 yrs old Black Male presents to ER via Ambulatory with complaints of Hand Pain. kb 19:42 The patient or guardian reports pain, tenderness. The complaints affect the right hand kb diffusely. Context: The problem was sustained at home, resulted from an unknown cause. Onset: The symptoms/episode began/occurred yesterday. Modifying factors: The symptoms are alleviated by nothing, the symptoms are aggravated by movement. Associated signs and symptoms: The patient has no apparent associated signs or symptoms. Severity of symptoms: At their worst the symptoms were moderate, in the emergency department the symptoms are unchanged. The patient has not experienced similar symptoms in the past. The patient has not recently seen a physician. Pt reports intermittent right hand pain that started a while ago, but has been constant since yesterday. . Historical: - Allergies: 18:48 NSAIDS; hj - PMHx: 18:48 Hypertension; hj - PSHx: 18:48 None; hj - Immunization history:: Adult Immunizations unknown. - Social history:: Smoking status: unknown. - Ebola Screening: : No symptoms or risks identified at this time. ROS: 19:41 Constitutional: Negative for fever, chills, and weight loss, ENT: Negative for injury, kb pain, and discharge, Neck: Negative for injury, pain, and swelling, Cardiovascular: Negative for chest pain, palpitations, and edema, Respiratory: Negative for shortness of breath, cough, wheezing, and pleuritic chest pain, Abdomen/GI: Negative for abdominal pain, nausea, vomiting, diarrhea, and constipation, Skin: Negative for injury, rash, and discoloration, Neuro: Negative for headache, weakness, numbness, tingling, and seizure. 19:41 MS/extremity: Positive for injury or acute deformity, pain, swelling, tenderness, of the right hand. Exam: 19:41 Constitutional: This is a well developed, well nourished patient who is awake, alert, kb and in no acute distress. Head/Face: Normocephalic, atraumatic. Chest/axilla: Normal chest wall appearance and motion. Nontender with no deformity. No lesions are appreciated. Cardiovascular: Regular rate and rhythm with a normal S1 and S2. No gallops, murmurs, or rubs. Normal PMI, no JVD. No pulse deficits. Respiratory: Lungs have equal breath sounds bilaterally, clear to auscultation and percussion. No rales, rhonchi or wheezes noted. No increased work of breathing, no retractions or nasal flaring. Abdomen/GI: Soft, non-tender, with normal bowel sounds. No distension or tympany. No guarding or rebound. No evidence of tenderness throughout. Skin: Warm, dry with normal turgor. Normal color with no rashes, no lesions, and no evidence of cellulitis. Neuro: Awake and alert, GCS 15, oriented to person, place, time, and situation. Cranial nerves II-XII grossly intact. Motor strength 5/5 in all extremities. Sensory grossly intact. Cerebellar exam normal. Normal gait. 19:41 Musculoskeletal/extremity: Extremities: grossly normal except: noted in the right hand: pain, tenderness, ROM: intact in all extremities, Circulation is intact in all extremities. Sensation intact. Vital Signs: 18:48 BP 132 / 83; Pulse 77; Resp 18; Temp 99.1(TE); Pulse Ox 98% on R/A; Weight 111.13 kg; hj Height 6 ft. 4 in. (193.04 cm); Pain 10/10; 18:48 Body Mass Index 29.82 (111.13 kg, 193.04 cm) MDM: 19:31 Patient medically screened. [facility] 19:35 Data reviewed: vital signs, nurses notes. Data interpreted: Pulse oximetry: on room air kb is 98 %. Interpretation: normal. Counseling: I had a detailed discussion with the patient and/or guardian regarding: the historical points, exam findings, and any diagnostic results supporting the discharge/admit diagnosis, the need for outpatient follow up, a orthopedic surgeon, to return to the emergency department if symptoms worsen or persist or if there are any questions or concerns that arise at home. Administered Medications: No medications were administered Disposition: 11/17 07:14 Co-signature as Attending Physician, Wan Lanza MD I agree with the assessment and vee plan of care. Disposition: 11/16/18 19:43 Discharged to Home. Impression: Pain in right hand. - Condition is Stable. - Discharge Instructions: Musculoskeletal Pain, Carpal Tunnel Syndrome, [id number], Hand Pain. - Prescriptions for Prednisone 20 mg Oral Tablet - take 1 tablet by ORAL route once daily for 5 days; 5 tablet. Cyclobenzaprine 10 mg Oral Tablet - take 1 tablet by ORAL route every 8 hours As needed; 21 tablet. - Medication Reconciliation Form, Thank You Letter, Antibiotic Education, Prescription Opioid Use form. - Follow up: Emergency Department; When: As needed; Reason: Worsening of condition. Follow up: Private Physician; When: 2 - 3 days; Reason: Recheck today's complaints, Continuance of care, Re-evaluation by your physician. Signatures: Cheli Ward, MALL PLANT CARETAKER-C MALL PLANT CARETAKER-Wan Parker MD MD cha Joaquin, Henry, RN RN Eliu Choi RN RN rv Corrections: (The following items were deleted from the chart) 11/16 19:50 19:43 11/16/2018 19:43 Discharged to Home. Impression: Pain in right hand. Condition is rv Stable. Forms are Medication Reconciliation Form, Thank You Letter, Antibiotic Education, Prescription Opioid Use. Follow up: Emergency Department; When: As needed; Reason: Worsening of condition. Follow up: Private Physician; When: 2 - 3 days; Reason: Recheck today's complaints, Continuance of care, Re-evaluation by your physician. kb
--- NOTE | 2018-11-16 19:45 | ER ---
Nurse's Notes [facility] Name: Faustino Tran Age: 38 yrs Sex: Male : 1980 Arrival Date: 11/16/2018 Time: 18:40 Bed 14 Private MD: Diagnosis: Pain in right hand Presentation: 11/16 18:47 Presenting complaint: Patient states: i was at work today, i started having pain on my hj R hand, i think i have carpal tunnel problem; denies trauma to the area;. Transition of care: patient was not received from another setting of care. Onset of symptoms was November 16, 2018. Risk Assessment: Do you want to hurt yourself or someone else? Patient reports no desire to harm self or others. Initial Sepsis Screen: Does the patient meet any 2 criteria? No. Patient's initial sepsis screen is negative. Does the patient have a suspected source of infection? No. Patient's initial sepsis screen is negative. Care prior to arrival: None. 18:47 Method Of Arrival: Ambulatory 18:47 Acuity: VERÓNICA 4 hj Historical: - Allergies: 18:48 NSAIDS; hj - PMHx: 18:48 Hypertension; hj - PSHx: 18:48 None; hj - Immunization history:: Adult Immunizations unknown. - Social history:: Smoking status: unknown. - Ebola Screening: : No symptoms or risks identified at this time. Screenin:49 Abuse screen: Denies threats or abuse. Denies injuries from another. Nutritional rv screening: No deficits noted. Tuberculosis screening: No symptoms or risk factors identified. Fall Risk None identified. Assessment: 19:48 General: Appears in no apparent distress. comfortable, Behavior is calm, cooperative. rv Pain: Complains of pain in right hand. Neuro: Level of Consciousness is awake, alert, obeys commands, confused, Oriented to person, place, time, situation. Cardiovascular: Capillary refill < 3 seconds. Respiratory: Airway is compromised. Respiratory: Reports. GI: No signs and/or symptoms were reported involving the gastrointestinal system. : No signs and/or symptoms were reported regarding the genitourinary system. EENT: No signs and/or symptoms were reported regarding the EENT system. Derm: Skin is intact. Musculoskeletal: Reports pain in right hand. Vital Signs: 18:48 BP 132 / 83; Pulse 77; Resp 18; Temp 99.1(TE); Pulse Ox 98% on R/A; Weight 111.13 kg; hj Height 6 ft. 4 in. (193.04 cm); Pain 10/10; 18:48 Body Mass Index 29.82 (111.13 kg, 193.04 cm) ED Course: 18:40 Patient arrived in ED. mr 18:48 Triage completed. hj 18:49 Arm band placed on left wrist. hj 19:30 Cheli Ward FNP-C [facility]. kb 19:30 Wan Lanza MD is Attending Physician. kb 19:44 Eliu Hodgson, JANIE is Primary Nurse. rv 19:49 Patient has correct armband on for positive identification. Bed in low position. Call rv light in reach. Side rails up X 1. Pulse ox on. NIBP on. 19:49 No provider procedures requiring assistance completed. Patient did not have IV access rv during this emergency room visit. Administered Medications: No medications were administered Outcome: 19:43 Discharge ordered by MD. kb 19:49 Discharged to home ambulatory. rv 19:49 Condition: good 19:49 Discharge instructions given to patient, Instructed on discharge instructions, follow up and referral plans. medication usage, Demonstrated understanding of instructions, follow-up care, medications, Prescriptions given X 2. 19:50 Patient left the ED. rv Signatures: Cheli Ward FNP-C FNP-Ckb Yulia HuffmanAristides, RN RN Eliu Hodgson, RN RN rv Corrections: (The following items were deleted from the chart) 18:50 18:48 Pulse 77bpm; Resp 18bpm; Pulse Ox 98% RA; Temp 99.1F Temporal; 111.13 kg; Height 6 ft. 4 in.; BMI: 29.8; Pain 10/10;
== END 2018-11-16 19:50 | disposition home or self-care (01) ==
LOC: ER 18:38
DX: M79.641 Pain in right hand (principal)
CPT/HCPCS: 99283